=== PATIENT | male | born 1995 | race Caucasian/White ===

== ENCOUNTER 2020-02-09 10:37 | Inpatient (IN) | payer OTHER, SELFPAY ==
[~2020-02-09] VITALS: Ht 185.4 cm; Wt 73.0 kg
[2020-02-09] MEDS: NICOTINE 21MG/24HR 1 EA TRANSDERMAL TD SCH (09:00)
[~2020-02-09 10:37] MED LIST: ASPI81TA26 PO; AUGM875T28 PO; DOXY100T PO; PERCOCET PO; VENTAER INH
[2020-02-09] MEDS ORDERED: LORazepam 2 MG TAB PO ONE ×2 (12:00→15:00)
[2020-02-09 12:05] LABS: HEMATOCRIT 42.6 % (42.0-52.0); HEMOGLOBIN 14.1 g/dl (13.5-17.5); MEAN CORPUSCULAR HEMOGLOBIN 30.9 pg (27.0-33.0); MEAN CORPUSCULAR HGB CONC 33.1 g/dl (32.0-36.5); MEAN CORPUSCULAR VOLUME 93.4 fl (80.0-96.0); PLATELET COUNT, AUTOMATED 160 10^3/uL (150-450); RED BLOOD COUNT 4.56 10^6/uL (4.30-6.10); WHITE BLOOD COUNT 8.6 10^3/uL (4.0-10.0)
[2020-02-09 12:46] LABS: AMPHETAMINES LEVEL URINE POSITIVE (NEGATIVE); BARBITURATES URINE NEGATIVE (NEGATIVE); BENZODIAZEPINES URINE NEGATIVE (NEGATIVE); CANNABINOIDS URINE POSITIVE (NEGATIVE); COCAINE METABOLITE URINE NEGATIVE (NEGATIVE); METHADONE URINE NEGATIVE (NEGATIVE); OPIATES URINE NEGATIVE (NEGATIVE); PHENCYCLIDINE URINE NEGATIVE (NEGATIVE)
[2020-02-09 12:47] LABS: ACETAMINOPHEN LEVEL < 2.0 UG/ML (10.0-30.0); ALT/SGPT 559 U/L (12-78); BILIRUBIN,DIRECT 1.5 MG/DL (0.0-0.2); BILIRUBIN,TOTAL 2.5 MG/DL (0.2-1.0); BLOOD UREA NITROGEN 8 MG/DL (7-18); CALCIUM LEVEL 9.7 MG/DL (8.5-10.1); CARBON DIOXIDE LEVEL 29 MEQ/L (21-32); CHLORIDE LEVEL 98 MEQ/L (98-107); CREATININE FOR GFR 1.13 MG/DL (0.70-1.30); ETHYL ALCOHOL (ETHANOL) < 0.003 % (0.000-0.010); GLOMERULAR FILTRATION RATE > 60.0 (>60); GLUCOSE, FASTING 92 MG/DL (70-100); POTASSIUM SERUM 3.6 MEQ/L (3.5-5.1); SALICYLATE LEVEL < 1.7 MG/DL (5.0-30.0); SODIUM LEVEL 136 MEQ/L (136-145); THYROID STIMULATING HORMONE 0.735 uIU/ML (0.358-3.740); TOTAL PROTEIN 8.9 GM/DL (6.4-8.2)
[2020-02-09 14:12] LABS: HEPATITIS B SURFACE ANTIGEN NEGATIVE (NEGATIVE)
[2020-02-09 14:39] LABS: HEPATITIS B CORE ANTIBODY IGM NEGATIVE (NEGATIVE)
[2020-02-09 14:42] LABS: HEPATITIS A ANTIBODY IGM NEGATIVE (NEGATIVE)
[2020-02-09 14:48] LABS: HEPATITIS C VIRUS ABY INDEX > 11.0 INDEX (<0.8)
[2020-02-09] MEDS ORDERED: MAALOX 30 ML SUSP *UDC PO PRN (19:15)
[2020-02-09] MEDS ORDERED: traZODone 50 MG TAB PO PRN (19:15)
[2020-02-09] MEDS ORDERED: ACETAMINOPHEN TAB 650MG DOSE (2X325MG) PO PRN (19:15)
[2020-02-09] MEDS ORDERED: MOM 30ML SUSPENSION UDC PO PRN (19:15)
[2020-02-09] MEDS ORDERED: OLANZapine ORAL DISINTEGRATING TAB 5MG PO PRN (19:15)
[2020-02-09] MEDS: OLANZapine ORAL DISINTEGRATING TAB 5MG PO SCH (20:15)
[2020-02-09 21:38] VITALS: BP 112/82
[2020-02-10] MEDS: NICOTINE 21MG/24HR 1 EA TRANSDERMAL TD SCH ×2 (08:35→13:44)
--- NOTE | 2020-02-10 11:30 | HPEPDOC ---
General Date of Admission Feb 09, 2020 at 19:06 Date of Service: Feb 10, 2020 Chief Complaint The patient is a 24-year-old male Who presented to the ER after reporting paranoia History of Present Illness Patient is a 24-year-old male with past medical history of substance abuse who presented to the emergency room after reporting symptoms of paranoia and problems with the police. Upon arrival to emergency room, patient was evaluated and admitted to the inpatient mental health unit under the care of psychiatry. Hospitalist service was consultation for medical screening evaluation. Patient reports a mild headache, mild cough. Reports that he woke up this morning with some sweats. Patient denies any chest pain, shortness of breath or palpitations. Denies any nausea, vomiting, abdominal pain, constipation, diarrhea, or urinary discomfort. Has not experienced any fevers. Patient reports his appetite is poor but denies any significant changes in his weight. Home Medications Scheduled Aspirin (Aspirin EC) 81 Mg Tab, 81 MG PO DAILY, (Reported) Allergies Coded Allergies: No Known Allergies (Unverified , 11/07/18) Past Medical History Medical History Polysubstance abuse Surgical History Appendectomy, right thumb tendon repair, left pinky cat bite Family History - Mother and father without any reported medical problems - Grandmother with a history of diabetes - Maternal ovarian cancer Social History - Patient reports that he smokes cigarettes for the last 10 years at 1 pack a day - Reports that he consumes alcohol approximately 1 L of vodka daily - Patient also reports that he uses several different substances including marijuana, amphetamine and opiates / heroine - Denies recent travel or sick contacts - Lives with grandfather - Occupation; unemployed Review of Systems Other systems 10 point review of systems complete, all negative otherwise stated in HPI Vital Signs - Vitals: BP 112/82, HR 77, RR 18, Sat 100%RA, Temp 99.2F - General: Lying in bed, No acute distress, Speaking in full sentences, AAOx3 - HEENT: NC, AT, PERRLA, EOMI - CVS: RRR, +S1S2 - Lungs: Fair air entry bilaterally, No appreciable wheezing / rales / rhonchi - Abdomen: Soft, Non-distended, Non-tender - Extremities: No lower extremity edema, No calf tenderness - Neuro: No focal motor or sensory deficit - Skin: No visible rashes Laboratory Data Labs 24H Laboratory Tests 2 02/09/20 11:44: Nucleated Red Blood Cells % (auto) 0.0, Anion Gap 9, Glomerular Filtration Rate > 60.0, Calcium Level 9.7, Total Bilirubin 2.5H, Direct Bilirubin 1.5H, Aspartate Amino Transf (AST/SGOT) 364H, Alanine Aminotransferase (ALT/SGPT) 559H, Alkaline Phosphatase 215H, Total Protein 8.9H, Albumin 4.0, Albumin/Globulin Ratio 0.82L, Thyroid Stimulating Hormone (TSH) 0.735, Salicylates Level < 1.7L, Urine Opiates Screen NEGATIVE, Urine Methadone Screen NEGATIVE, Acetaminophen Level < 2.0L, Urine Barbiturates Screen NEGATIVE, Urine Phencyclidine Screen NEGATIVE, Urine Amphetamines Screen POSITIVEH, Urine Benzodiazepines Screen NEGATIVE, Urine Cocaine Metabolite Screen NEGATIVE, Urine Cannabinoids Screen POSITIVEH, Ethyl Alcohol Level < 0.003, Hepatitis A IgM Antibody NEGATIVE, Hepatitis B Surface Antigen NEGATIVE, Hepatitis B Core IgM Antibody NEGATIVE, Hepatitis C Antibody Index > 11.0H CBC/BMP Laboratory Tests 02/09/20 11:44 Plan / VTE VTE Prophylaxis Ordered?: Yes Plan Plan Paranoia - Patient has been admitted to the inpatient mental health unit under the care of psychiatry - Currently being managed by psychiatry Polysubstance abuse - Reported history of alcohol, marijuana, methamphetamine, opiates - Will start multivitamins, thiamine and folate Elevated liver enzymes - possibly 2/2 hepatitis C, alcohol induced hepatitis - Hepatitis profile is currently positive for hepatitis C antibodies - Hepatitis C viral RNA pending - Patient will likely require outpatient follow-up with infectious disease for continued management DVT prophylaxis - Will continue with early ambulation Female spar cap beveler was present throughout the duration of his history and physical examination Thank you for this consultation; please consult as needed MAYELA CEJA MD Feb 10, 2020 11:30
--- NOTE | 2020-02-10 11:45 | MHHPEPDOC ---
[facility] History & Physical History and Physical DATE OF ADMISSION: Feb 09, 2020 at 19:06 New Patient Grant Bain MRN: N/A Date of : N/A Date of Service: 02/10/2020 Chief Complaint "I did a lot of meth." History of Present Illness The patient, a 24-year-old man with an extensive history of methamphetamine use, presents psychotic after using methamphetamine for several days, he had been brought in after his grandmother had called the police as he had stopped sleepi ng for 3 days after using a significant amount of methamphetamine becoming psychotic and paranoid. When I met with the patient he was reporting that he was feeling much improved and no longer was feeling fearful and having voices as he has when he uses met hamphetamines. Has a significant history of heroin use as well and recently been on a suarez. He describes that he did have some episodes of depression in the past, but they screened negative for MDD as they were in the context of his use, he reports that he feels much improved and wishes to be discharged. Below ROS is taken for sober time only. Review Of Systems Depression: As above. Anxiety: The patient denies any excessive worry associated with physical symptoms. They deny any experience of discreet panic in the past. Sudha: The patient denies any episodes of euphoria/dysphoria associated with decreased need for sleep, hedonism, talkatively or impulsivity lasting longer than 5 days. Psychotic: As above. Trauma: The patient denies any traumatic events associated with nightmares or intrusive thoughts. Borderline: The patient screens negative for borderline personality at this junction. Past Psychiatric History The patient reports no history of psychiatric admissions, medication trials or current follow up. Denies any history of suicide attempts. Allergies Please see below. Family Psychiatric History Reports a history of addiction in his family, unclear if any mental health or suicides. Social History Patient currently is unemployed, lives with grandmother, has multiple charges due to drug use. He denies having any physical or sexual abuse growing up. He currently has no income and supported primarily by family. Substance Abuse History Has an extensive history of methamphetamine, heroin, tobacco and alcohol use as an outpatient. Has been in rehab before and had previously been connected with [facility] [facility]. Medical History Has a history of chronic hepatitis C. Mental Status Examination General: Well dressed with good hygiene Speech: Spontaneous and fluid Thought processes: Linear and logical MSK: Smooth and coordinated gait, no signs of tremors or involuntary orofacial movements Thought content: Future orientated Abstract reasoning, and computation: Intact Description of associations: Intact Description of abnormal or psychotic thoughts: Denies any suicidal or homicidal ideation. Denies any auditory or visual hallucinations. Does not appear to be responding to internal stimuli. Does not appear to be endorsing any bizarre or paranoid ideation. Judgment: Appears to be chronically limited. Insight: Appears to be chronically limited. 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 Methamphetamine use disorder, severe. Alcohol use disorder, unspecified. Heroin use disorder, severe. Assessment and Plan Unspecified psychotic disorder: Likely substance induced, we'll allow to self resolve as it appears to be resolving without any interventions, we'll continue Zyprexa 5 mg nightly if needed. Methamphetamine use disorder/heroin use disorder: Recommend outpatient addiction treatment. Alcohol use disorder: Continue CIWA protocol. Disposition Problem List 1. Altered thoughts. Initial Treatment Plan 1. Patient was admitted on a 9.39 legal status. 2. Complete history was obtained. 3. With patients permission, family will be contacted and database will be ex panded. 4. Patients medication regimen will be reviewed and changed accordingly. 5. Patient will be provided with protected environment. 6. Patient will be treated with individual, group, and milieu therapies. 7. Patient will receive supportive psych-education. 8. Discharge planning will commence immediately. 9. Outpatient follow-up treatment will be strongly recommended. 10. The initial treatment plan will focus initially on: Estimated Length Of Stay 2 days. Time Spent 70 minutes with greater than 50% of time spent on counseling/coordination of care. Wednesday Vital Signs Vital Signs Date Time Temp Pulse Resp B/P (MAP) Pulse Ox O2 Delivery O2 Flow Rate FiO2 02/09/20 21:38 99.2 77 18 112/82 (92) 94 Room Air Medications Scheduled Aspirin (Aspirin EC) 81 Mg Tab, 81 MG PO DAILY, (Reported) Allergies Coded Allergies: No Known Allergies (Unverified , 11/07/18) A-FIB/CHADSVASC A-FIB History Current/History of A-Fib/PAF?: No ROSEANNE WEBSTER DO Feb 10, 2020 11:45
[2020-02-10] MEDS: THIAMINE 100 MG TAB PO SCH (12:15)
[2020-02-10] MEDS: MULTIVITAMINS/MINERALS THERAP 1 TAB PO SCH (12:15)
[2020-02-10] MEDS: FOLIC ACID 1 MG TAB PO SCH (12:15)
[2020-02-10 12:39] LABS: ALBUMIN 3.5 GM/DL (3.2-5.2); ALT/SGPT 386 U/L (12-78); BLOOD UREA NITROGEN 13 MG/DL (7-18); CALCIUM LEVEL 9.2 MG/DL (8.5-10.1); CARBON DIOXIDE LEVEL 27 MEQ/L (21-32); CHLORIDE LEVEL 104 MEQ/L (98-107); GLOMERULAR FILTRATION RATE > 60.0 (>60); GLUCOSE, FASTING 136 MG/DL (70-100); POTASSIUM SERUM 3.4 MEQ/L (3.5-5.1); SODIUM LEVEL 139 MEQ/L (136-145)
[2020-02-10 16:05] VITALS: BP 115/71
[2020-02-10] MEDS: OLANZapine ORAL DISINTEGRATING TAB 5MG PO SCH (20:21)
[2020-02-11 06:09] VITALS: BP 95/60
[2020-02-11] MEDS: THIAMINE 100 MG TAB PO SCH (08:15)
[2020-02-11] MEDS: MULTIVITAMINS/MINERALS THERAP 1 TAB PO SCH (08:15)
[2020-02-11] MEDS: FOLIC ACID 1 MG TAB PO SCH (08:15)
[2020-02-11] MEDS: NICOTINE 21MG/24HR 1 EA TRANSDERMAL TD SCH (08:17)
--- NOTE | 2020-02-11 10:50 | MHDSPDOC ---
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 Methamphetamine use disorder, severe. Alcohol use disorder, unspecified. Heroin use disorder, severe. History of Present Illness The patient, a 24-year-old man with an extensive history of methamphetamine use, presents psychotic after using methamphetamine for several days, he had been brought in after his grandmother had called the police as he had stopped sleeping for 3 days after using a significant amount of methamphetamine becoming psychotic and paranoid. When I met with the patient he was reporting that he was feeling much improved and no longer was feeling fearful and having voices as he has when he uses methamphetamines. Has a significant history of heroin use as well and recently b een on a suarez. He describes that he did have some episodes of depression in the past, but they screened negative for MDD as they were in the context of his use, he reports that he feels much improved and wishes to be discharged. Below ROS is taken for sober time only. Consultants Involved Hospitalist/PCP screening Treatment and Progress On The Unit The patient was admitted to the inpatient mental health unit and started on supportive dose of Zyprexa 5 mg nightly, he resolved quickly and his psychosis rapidly disappeared as were to be expected in a substance-induced psychosis especially secondary to methamphetamine. The patient improved well and did not demonstrate any behavioral problems and was generally amenable with staff interventions. He denied suicidal or homicidal ideation through the entirety of his admission and otherwise had an uneventful admission. He had requested discharge on the first day of meeting. After being observed for the full 48 hours, he did not meet involuntary criteria and was triaged for discharge. Discharge Assessment 24-year-old man with significant substance use history presents becoming psychotic after using methamphetamine, he is treated with a supportive dose of Zyprexa and observation, resolves well and is highly recommended to seek addiction treatment or rehab, his family is somewhat ambivalent especially his grandmother who would prefer us to keep him against his will, however after information is gathered from her there is no contributory information that strived that would allow us to keep the patient against his will at this time given his normal mental status exam and improved insight into the situation as well as lack of psychotic phenomenon observed on discharge. The patient at the time of discharge did not meet criteria for involuntary admission/extension due to having a normal mental status exam, fair insight into the situation, They are engaged in the discharge process, as well as being friendly and amenable in behavioral control and havent been engaging in any observed concerning behavior or ideation recently. They decline voluntary extension/admission at this time and must be discharged in good dominick, as Im unable to make a case for holding the patient against their will. They may have historical risk factors of admissions and other interactions with psychiatry however, those are not modifiable from a clinical perspective. The patient will need to be discharged in good dominick. Mental Status Examination General: Well dressed with good hygiene Speech: Spontaneous and fluid Thought processes: Linear and logical MSK: Smooth and coordinated gait, no signs of tremors or involuntary orofacial movements Thought content: Future orientated Abstract reasoning, and computation: Intact Description of associations: Intact Description of abnormal or psychotic thoughts: Denies any suicidal or homicidal ideation. Denies any auditory or visual hallucinations. Does not appear to be responding to internal stimuli. Does not appear to be endorsing any bizarre or paranoid ideation. Judgment: fair Insight: fair Orientation: Alert and orientated 3 Cognition: Grossly normal Recent and remote memory: Intact Attention span and concentration: Intact Fund of knowledge: Adequate Mood: "okay" Affect: Euthymic with a full range Follow Up The social work team worked during the predischarge meeting in order to evaluate for further issues of lethality address them fully before discharge. They worked on safety planning with the patient's family members in order to ensure that the patient will have a safe and effective discharge. Time Spent The amount of time spent in the coordination of care for this patient was ap proximately 45 minutes. Wednesday Vital Signs/I&Os Vital Signs Date Time Temp Pulse Resp B/P (MAP) Pulse Ox O2 Delivery O2 Flow Rate FiO2 02/11/20 06:09 98.5 62 16 95/60 (72) 99 Room Air Laboratory Data Labs 24H Laboratory Tests 2 02/10/20 11:58: Anion Gap 8, Glomerular Filtration Rate > 60.0, Calcium Level 9.2, Total Bilirubin 2.0H, Aspartate Amino Transf (AST/SGOT) 197H, Alanine Aminotransferase (ALT/SGPT) 386H, Alkaline Phosphatase 170H, Total Protein 8.0, Albumin 3.5, Albumin/Globulin Ratio 0.78L CBC/BMP Laboratory Tests 02/10/20 11:58 Medications Scheduled Aspirin (Aspirin EC) 81 Mg Tab, 81 MG PO DAILY, (Reported) Naloxone HCl (Narcan) 4 Mg [place], 1 SPRAY NARES ONCE for opioid for 14 Days, #1 Nicotine (Nicotine Patch) 21 Mg Patch.td24, 1 PATCH TD DAILY for tobacco for 30 Days, #30 Olanzapine (Olanzapine) 5 Mg Tablet, 1 TAB PO QPM for thoughts for 7 Days, #7 Allergies Coded Allergies: No Known Allergies (Unverified , 11/07/18) ROSEANNE WEBSTER DO Feb 11, 2020 10:50
[2020-02-11] MEDS ORDERED: NICO21PAT TD (11:22)
[2020-02-11] MEDS ORDERED: OLAN5TAB PO (11:22)
[2020-02-11] MEDS ORDERED: NARC1SPR NARES (13:42)
== END 2020-02-11 12:45 | disposition home or self-care (01) | DRG 774 ==
LOC: M ED 10:37 → M ED INP 19:06 → M PSY 21:28
PROVIDERS: ADMIT Psychiatry & Neurology Addiction Medicine; ATTEND Psychiatry & Neurology Addiction Medicine
DX: F19.94 Other psychoactive substance use, unspecified with psychoactive substance-induced mood disorder (principal); F14.90 Cocaine use, unspecified, uncomplicated; F10.10 Alcohol abuse, uncomplicated; F15.90 Other stimulant use, unspecified, uncomplicated; Z79.82 Long term (current) use of aspirin; F17.210 Nicotine dependence, cigarettes, uncomplicated

== ENCOUNTER → 2022-04-30 | Outpatient (CLI) | payer OTHER ==
[~2022-04-30] MED LIST changes: +ALBU8.5H INH; +NARC1SPR NARES; +NICO21PAT TD; +OLAN1TAB16 PO; +SERT25TA21 PO
[2022-04-30 14:08] LABS: HEMATOCRIT 43.3 % (42.0-52.0); HEMOGLOBIN 15.1 g/dl (13.5-17.5); MEAN CORPUSCULAR HEMOGLOBIN 35.1 pg (27.0-33.0); MEAN CORPUSCULAR HGB CONC 34.9 g/dl (32.0-36.5); MEAN CORPUSCULAR VOLUME 100.7 fl (80.0-96.0); WHITE BLOOD COUNT 4.7 10^3/uL (4.0-10.0)
[2022-04-30 14:19] LABS: ALBUMIN 4.3 GM/DL (3.2-5.2); ALT/SGPT 161 U/L (12-78); BILIRUBIN,TOTAL 2.7 MG/DL (0.2-1.0); BLOOD UREA NITROGEN 4 MG/DL (7-18); CALCIUM LEVEL 10.1 MG/DL (8.5-10.1); CARBON DIOXIDE LEVEL 31 MEQ/L (21-32); CHLORIDE LEVEL 96 MEQ/L (98-107); CREATININE FOR GFR 0.65 MG/DL (0.70-1.30); GLOMERULAR FILTRATION RATE > 60.0 (>60); GLUCOSE, FASTING 117 MG/DL (70-100); POTASSIUM SERUM 3.7 MEQ/L (3.5-5.1); SODIUM LEVEL 136 MEQ/L (136-145); TOTAL PROTEIN 7.8 GM/DL (6.4-8.2)
[2022-04-30 14:33] LABS: PLATELET COUNT, AUTOMATED 51 10^3/uL (150-450)
[2022-04-30 14:54] LABS: HEPATITIS B SURFACE ANTIBODY NEGATIVE (POSITIVE); HEPATITIS B SURFACE ANTIGEN NEGATIVE (NEGATIVE)
[2022-04-30 15:11] LABS: HIV 1&2 SCREEN CENTAUR NEGATIVE (NEGATIVE)
== END ==
LOC: M PLALAB 09:46
PROVIDERS: ATTEND Internal Medicine Infectious Disease
DX: B18.2 Chronic viral hepatitis C (principal)